=== PATIENT | female | born 2000 | race Two or more races ===

== ENCOUNTER 2021-05-14 03:15 | Inpatient (IN) | payer OTHER ==
[~2021-05-14] VITALS: Ht 149.9 cm; Wt 51.7 kg
[2021-05-15] MEDS ORDERED: PRENATAL + DHA1 EAC1 PO (08:15)
== END 2021-05-16 17:35 | disposition home or self-care (01) | DRG 807 ==
LOC: LDR 03:15 → OB/GYN 03:15
PROVIDERS: ADMIT Obstetrics & Gynecology; ATTEND Obstetrics & Gynecology
PROC: 10E0XZZ Delivery of Products of Conception, External Approach (ICD-10-PCS; principal; 2021-05-14)
PROC: 0KQM0ZZ Repair Perineum Muscle, Open Approach (ICD-10-PCS; 2021-05-14)
PROC: 0UQMXZZ Repair Vulva, External Approach (ICD-10-PCS; 2021-05-14)
PROC: 10907ZC Drainage of Amniotic Fluid, Therapeutic from Products of Conception, Via Natural or Artificial Opening (ICD-10-PCS; 2021-05-14)
PROC: 4A1HXFZ Monitoring of Products of Conception, Cardiac Rhythm, External Approach (ICD-10-PCS; 2021-05-14)
DX: O70.1 Second degree perineal laceration during delivery (principal); O71.82 Other specified trauma to perineum and vulva; Z37.0 Single live birth; Z3A.39 39 weeks gestation of pregnancy; Z20.822 Contact with and (suspected) exposure to COVID-19